=== PATIENT | male | born 1985 | race Caucasian/White ===

== ENCOUNTER 2018-05-03 08:42 | Emergency (ER) | payer OTHER ==
[~2018-05-03] VITALS: Ht 172.7 cm; Wt 79.0 kg
[2018-05-03 08:56] VITALS: BP 126/71
== END 2018-05-03 09:30 | disposition home or self-care (01) ==
LOC: ER 08:43
DX: R51 Headache (principal); R42 Dizziness and giddiness; V43.52XA Car driver injured in collision with other type car in traffic accident, initial encounter; Y93.89 Activity, other specified; Y92.488 Other paved roadways as the place of occurrence of the external cause; Y99.8 Other external cause status
CPT/HCPCS: 99281

== ENCOUNTER 2018-05-19 17:52 | Emergency (ER) | payer OTHER | END 2018-05-19 19:00 | disposition left against medical advice (07) | LOC: ER 17:53 | DX: R51 Headache (principal); Z53.21 Procedure and treatment not carried out due to patient leaving prior to being seen by health care provider ==

== ENCOUNTER 2018-05-20 00:49 | Emergency (ER) | payer OTHER ==
[~2018-05-20] VITALS: Ht 170.2 cm; Wt 78.0 kg
[2018-05-20 00:59] VITALS: BP 134/85
== END 2018-05-20 02:56 | disposition home or self-care (01) ==
LOC: ER 00:50
DX: R51 Headache (principal)
CPT/HCPCS: 70450; 99284